=== PATIENT | male | born 1985 | race Caucasian/White ===

== ENCOUNTER 2018-03-08 05:12 | Observation (INO) | payer SELFPAY ==
[~2018-03-08] VITALS: Ht 175.3 cm; Wt 95.2 kg
[~2018-03-08 05:12] MED LIST: NO HOME MEDICATIONS; NORCO 325 MG-51 TAB PO; PERCOCET 5/321 UDTAB PO; ZOFRAN 4MG T4 MG/TAB PO
[2018-03-08 06:15] LABS: BASO # 0.1 (0.0-0.2); BASO % 0.4 % (0.0-2.0); EOS # 0.2 (0.0-0.7); EOS % 0.8 % (0-4.0); GRAN # 14.5 (1.4-6.5); GRAN % 77.4 % (42.2-75.2); HEMATOCRIT 42.3 % (42.0-52.0); HEMOGLOBIN 14.7 g/dl (13.5-18.0); LYMPH # 2.5 (1.2-3.4); LYMPH % 13.4 % (20.0-51.0); MEAN CELL VOLUME 86 fl (80.0-100.0); MEAN CORPUSCULAR HEMOGLOBIN 30 pg (27.0-31.0); MEAN CORPUSCULAR HGB CONC 35 g/dl (33.0-37.0); MEAN PLATELET VOLUME 11.2 fl (7.4-10.4); MONO # 1.4 (0.1-0.6); MONO % 7.6 % (1.7-9.3); PLATELET COUNT 214 K/mm3 (130-400); REDCELL DISTRIBUTION WIDTH-CV 12.5 % (11.5-14.5)
[2018-03-08 06:32] LABS: ALBUMIN 4.2 gm/dL (3.5-5.0); BILIRUBIN,TOTAL 0.5 mg/dL (0.0-1.0); C-REACTIVE PROTEIN 3.3 mg/dL (0.0-0.9); CALCIUM 9.1 mg/dL (8.4-10.2); CREATININE, serum 0.96 mg/dL (0.66-1.25); POTASSIUM 3.5 mmol/L (3.4-5.0); TOTAL PROTEIN 7.8 gm/dL (6.4-8.2)
[2018-03-08 12:07] VITALS: BP 116/53; PULSE 70; TEMP 98
[2018-03-08 15:41] VITALS: BP 118/45; PULSE 69; TEMP 98
[2018-03-08 20:17] VITALS: BP 123/63; PULSE 71; TEMP 97.6
[2018-03-09 00:12] VITALS: BP 127/58; PULSE 76; TEMP 98.7
[2018-03-09 03:51] VITALS: BP 124/61; PULSE 74; TEMP 98.6
[2018-03-09 06:44] LABS: BASO % 0.5 % (0.0-2.0); EOS # 0.2 (0.0-0.7); EOS % 1.9 % (0-4.0); GRAN # 5.2 (1.4-6.5); GRAN % 65.3 % (42.2-75.2); HEMATOCRIT 41.4 % (42.0-52.0); HEMOGLOBIN 13.9 g/dl (13.5-18.0); LYMPH # 1.8 (1.2-3.4); LYMPH % 23.3 % (20.0-51.0); MEAN CELL VOLUME 89 fl (80.0-100.0); MEAN CORPUSCULAR HEMOGLOBIN 30 pg (27.0-31.0); MEAN CORPUSCULAR HGB CONC 34 g/dl (33.0-37.0); MEAN PLATELET VOLUME 11.5 fl (7.4-10.4); MONO # 0.7 (0.1-0.6); MONO % 8.7 % (1.7-9.3); PLATELET COUNT 162 K/mm3 (130-400); RED BLOOD COUNT 4.64 M/mm3 (4.20-5.60); REDCELL DISTRIBUTION WIDTH-CV 12.7 % (11.5-14.5)
[2018-03-09 06:47] LABS: CALCIUM 8.2 mg/dL (8.4-10.2); CREATININE, serum 0.74 mg/dL (0.66-1.25); POTASSIUM 4.4 mmol/L (3.4-5.0)
[2018-03-09 07:36] VITALS: BP 117/64; PULSE 70; TEMP 98.7
[2018-03-09] MEDS ORDERED: CLEOCIN HCL300 MG PO (09:12)
== END 2018-03-09 11:00 | disposition home or self-care (01) ==
LOC: COL.ER 05:12 → MEDICAL 07:28
PROVIDERS: Emergency Medicine; Physician Assistant
DX: R65.10 Systemic inflammatory response syndrome (SIRS) of non-infectious origin without acute organ dysfunction (principal); L03.116 Cellulitis of left lower limb; F17.210 Nicotine dependence, cigarettes, uncomplicated; K21.9 Gastro-esophageal reflux disease without esophagitis; F90.9 Attention-deficit hyperactivity disorder, unspecified type; Z88.8 Allergy status to other drugs, medicaments and biological substances; Z82.3 Family history of stroke; Z80.1 Family history of malignant neoplasm of trachea, bronchus and lung
CPT/HCPCS: 99222-AI; G0378; J1170; J1650; J2270; J3370; J7030; J7050

== ENCOUNTER 2019-02-08 11:18 | Emergency (ER) | payer MEDICAID ==
[~2019-02-08] VITALS: Ht 177.8 cm; Wt 81.8 kg
[~2019-02-08 11:18] MED LIST changes: +CLEOCIN HCL300 MG PO
[2019-02-08 11:23] VITALS: BP 136/80
[2019-02-08] MEDS ORDERED: CEPHALEXIN500 M1 PO (12:30)
[2019-02-08 12:48] VITALS: PULSE 80; TEMP 98.7
== END 2019-02-08 12:48 | disposition home or self-care (01) ==
LOC: COL.ER 11:18
DX: S86.891A Other injury of other muscle(s) and tendon(s) at lower leg level, right leg, initial encounter (principal); F12.90 Cannabis use, unspecified, uncomplicated; Z87.891 Personal history of nicotine dependence; X58.XXXA Exposure to other specified factors, initial encounter
CPT/HCPCS: J1885

== ENCOUNTER 2019-03-31 10:27 | Emergency (ER) | payer MEDICAID ==
[~2019-03-31] VITALS: Ht 177.8 cm; Wt 86.2 kg
[~2019-03-31 10:27] MED LIST changes: +CEPHALEXIN500 M1 PO
[2019-03-31 10:37] VITALS: BP 125/66; PULSE 88; TEMP 98.6
== END 2019-03-31 13:22 | disposition home or self-care (01) ==
LOC: COL.ER 10:27
DX: S92.401A Displaced unspecified fracture of right great toe, initial encounter for closed fracture (principal); F32.9 Major depressive disorder, single episode, unspecified; F90.9 Attention-deficit hyperactivity disorder, unspecified type; F17.210 Nicotine dependence, cigarettes, uncomplicated; F12.90 Cannabis use, unspecified, uncomplicated; W22.8XXA Striking against or struck by other objects, initial encounter; Y92.009 Unspecified place in unspecified non-institutional (private) residence as the place of occurrence of the external cause